=== PATIENT | female | born 1970 | race Caucasian/White ===

== ENCOUNTER 2016-09-26 14:54 | Inpatient (IN) | payer MEDICAID ==
[~2016-09-26] VITALS: Ht 172.7 cm; Wt 78.9 kg
[~2016-09-26 14:54] MED LIST: METF-303 PO
[2016-09-26 15:00] VITALS: BP_SYST 159
[2016-09-26] MEDS ORDERED: NACL 0.9% 1,000 ML IV SCH (15:18)
[2016-09-26 15:43] LABS: BILIRUBIN,URINE NEGATIVE (NEGATIVE); BLOOD, URINE 3+ (NEGATIVE); CLARITY/URINE HAZY (CLEAR); COLOR,URINE YELLOW (YELLOW); GLUCOSE,URINE 3+ (NEGATIVE); KETONES,URINE NEGATIVE (NEGATIVE); LEUKOCYTE ESTERASE ,URINE 2+ (NEGATIVE); NITRITE, URINE NEGATIVE (NEGATIVE); PROTEIN URINE 2+ (NEGATIVE); UROBILINOGEN,URINE 0.2 (0.2-1.0)
[2016-09-26 16:04] LABS: HEMATOCRIT 45.9 % (36-48); HEMOGLOBIN 15.3 g/dL (12.0-16.0); MEAN CORPUSCULAR HEMOGLOBIN 29 pg (27-31); MEAN CORPUSCULAR HGB CONC 34 % (32-36); MEAN CORPUSCULAR VOLUME 88 fL (79.0-98.0); PLATELET COUNT (AUTO) 185 K/uL (130-430); RED BLOOD CELL COUNT(AUTO) 5.21 MIL/uL (4.2-6.2); RED CELL DISTRIBUTION WIDTH 12.6 % (9.0-15.0); WHITE BLOOD COUNT (AUTO) 9.1 K/uL (4.8-10.8)
[2016-09-26 16:09] LABS: BACTERIA,URINE FEW /HPF (None Seen); MUCUS,URINE None Seen /LPF (None Seen); WBC,URINE 50-80 /HPF (0-3)
[2016-09-26 16:17] LABS: CALCIUM 8.5 mg/dL (8.4-11.0); CREATININE 1.01 mg/dL (0.55-1.30); POTASSIUM 3.8 mmol/L (3.5-5.1)
[2016-09-26 16:20] LABS: BAND % (MANUAL) 2 % (0-6); BASOPHILS % (MANUAL) 0 % (0-2); EOSINOPHILS % (MANUAL) 0 % (0-7); LYMPHOCYTES % (MANUAL) 5 % (20-46); MONOCYTES % (MANUAL) 1 % (0-11)
[2016-09-26 16:21] LABS: ALBUMIN 3.6 g/dL (3.4-4.8); TOTAL BILIRUBIN 1.6 mg/dL (0.0-1.0); TOTAL PROTEIN, SERUM 8.1 g/dL (6.4-8.3)
[2016-09-26] MEDS ORDERED: cefTRIAXone 1 GM IVPB PREMIX 50 ML IV ONE (16:45)
[2016-09-26] MEDS ORDERED: HUM10VIA3 SUBCUT (16:52)
[2016-09-26] MEDS ORDERED: LISI-209 PO (16:52)
[2016-09-26] MEDS ORDERED: KETOROLAC TROMETHAMINE 30 MG VIAL IVP ONE (17:00)
[2016-09-26] MEDS ORDERED: ACETAMINOPHEN 325 MG TABLET PO PRN (17:00)
[2016-09-26] MEDS ORDERED: NACL 0.9% 1,000 ML IV ONE (17:00)
[2016-09-26 17:35] VITALS: BP_SYST 128
[2016-09-26 18:04] VITALS: BP_SYST 128
[2016-09-26] MEDS: NACL 0.9% 1,000 ML IV SCH (18:43)
[2016-09-26] MEDS: INSULIN REGULAR, HUMAN 100 UNITS/ML, 10 ML VIAL (novoLIN R) SUBCUT PRN ×2 (18:45→22:46)
[2016-09-26 21:31] VITALS: BP_SYST 132
[2016-09-27 00:35] VITALS: BP_SYST 136
[2016-09-27] MEDS: MORPHINE 4 MG/ML INJ. SYRINGE IVP PRN ×4 (02:43→20:07)
[2016-09-27] MEDS: ACETAMINOPHEN 325 MG TABLET PO PRN ×2 (02:44→20:15)
[2016-09-27] MEDS ORDERED: MORPHINE 4 MG/ML INJ. SYRINGE ONE (02:50)
[2016-09-27] MEDS ORDERED: KETOROLAC TROMETHAMINE 15 MG VIAL IVP PRN (04:00)
[2016-09-27] MEDS ORDERED: KETOROLAC TROMETHAMINE 30 MG VIAL ONE (04:17)
[2016-09-27 04:21] VITALS: BP_SYST 137
[2016-09-27] MEDS: NACL 0.9% 1,000 ML IV SCH (06:18)
[2016-09-27] MEDS: INSULIN REGULAR, HUMAN 100 UNITS/ML, 10 ML VIAL (novoLIN R) SUBCUT PRN ×4 (06:23→20:24)
[2016-09-27 08:00] VITALS: BP_SYST 127
[2016-09-27] MEDS: LEVOFLOXACIN 500 MG/D5W 100 ML IV SCH (09:15)
[2016-09-27 13:12] VITALS: BP_SYST 138
[2016-09-27 13:59] LABS: CALCIUM 7.5 mg/dL (8.4-11.0); CREATININE 0.65 mg/dL (0.55-1.30); POTASSIUM 3.7 mmol/L (3.5-5.1)
[2016-09-27 14:00] LABS: BASOPHILS % (AUTO) 0.5 % (0.0-2.0); EOSINOPHILS % (AUTO) 0.4 % (0.0-4.0); HEMATOCRIT 40.7 % (36-48); HEMOGLOBIN 13.5 g/dL (12.0-16.0); LYMPHOCYTES # (AUTO) 0.6 K/uL (1.0-5.5); MEAN CORPUSCULAR HEMOGLOBIN 30 pg (27-31); MEAN CORPUSCULAR HGB CONC 33 % (32-36); MEAN CORPUSCULAR VOLUME 89 fL (79.0-98.0); MONOCYTES # (AUTO) 0.2 K/uL (0.0-1.0); MONOCYTES % (AUTO) 6.2 % (1.7-9.3); NEUTROPHILS # (AUTO) 3.2 K/uL (1.8-7.7); NEUTROPHILS % (AUTO) 78.9 % (40.0-70.0); PLATELET COUNT (AUTO) 143 K/uL (130-430); RED BLOOD CELL COUNT(AUTO) 4.57 MIL/uL (4.2-6.2); RED CELL DISTRIBUTION WIDTH 12.4 % (9.0-15.0)
[2016-09-27 16:50] VITALS: BP_SYST 133
[2016-09-27] MEDS: cefTRIAXone 1 GM in D5W 50 ML IV SCH (16:57)
[2016-09-27 19:45] VITALS: BP_SYST 166
[2016-09-27] MEDS ORDERED: cloNIDine HCL 0.2 MG TABLET PO PRN (21:30)
[2016-09-27] MEDS: HYDROcodone/ACETAMIN 5-325 MG TAB (NORCO/ VICODIN) PO PRN (22:00)
[2016-09-28 00:10] VITALS: BP_SYST 129
[2016-09-28] MEDS: NACL 0.9% 1,000 ML IV SCH ×2 (00:43→15:19)
[2016-09-28] MEDS: HYDROcodone/ACETAMIN 5-325 MG TAB (NORCO/ VICODIN) PO PRN (03:48)
[2016-09-28 04:28] VITALS: BP_SYST 138
[2016-09-28] MEDS: INSULIN REGULAR, HUMAN 100 UNITS/ML, 10 ML VIAL (novoLIN R) SUBCUT PRN ×4 (06:03→21:10)
[2016-09-28] MEDS: INSULIN NPH/REGULAR 70-30, 100 UNITS/ML, 10 ML VIAL SUBCUT SCH (06:04)
[2016-09-28 07:37] VITALS: BP_SYST 147
[2016-09-28] MEDS: HYDROcodone/ACETAMIN 10-325 MG TAB PO PRN ×4 (07:45→23:47)
[2016-09-28] MEDS: LISINOPRIL 5 MG TABLET PO SCH (09:15)
[2016-09-28] MEDS: LEVOFLOXACIN 500 MG/D5W 100 ML IV SCH (09:16)
[2016-09-28 12:37] VITALS: BP_SYST 133
[2016-09-28 16:28] VITALS: BP_SYST 142
[2016-09-28] MEDS: cefTRIAXone 1 GM in D5W 50 ML IV SCH (16:35)
[2016-09-28 16:48] LABS: BASOPHILS % (AUTO) 0.9 % (0.0-2.0); EOSINOPHILS % (AUTO) 0.8 % (0.0-4.0); HEMATOCRIT 41.4 % (36-48); HEMOGLOBIN 13.4 g/dL (12.0-16.0); LYMPHOCYTES # (AUTO) 0.6 K/uL (1.0-5.5); LYMPHOCYTES % (AUTO) 24.1 % (20.5-51.5); MEAN CORPUSCULAR HEMOGLOBIN 29 pg (27-31); MEAN CORPUSCULAR HGB CONC 33 % (32-36); MEAN CORPUSCULAR VOLUME 89 fL (79.0-98.0); MONOCYTES # (AUTO) 0.3 K/uL (0.0-1.0); MONOCYTES % (AUTO) 12.5 % (1.7-9.3); NEUTROPHILS # (AUTO) 1.6 K/uL (1.8-7.7); NEUTROPHILS % (AUTO) 61.7 % (40.0-70.0); PLATELET COUNT (AUTO) 135 K/uL (130-430); RED BLOOD CELL COUNT(AUTO) 4.64 MIL/uL (4.2-6.2); RED CELL DISTRIBUTION WIDTH 12.4 % (9.0-15.0); WHITE BLOOD COUNT (AUTO) 2.5 K/uL (4.8-10.8)
[2016-09-28 16:57] LABS: ALBUMIN 2.3 g/dL (3.4-4.8); CALCIUM 7.8 mg/dL (8.4-11.0); CREATININE 0.67 mg/dL (0.55-1.30); POTASSIUM 3.7 mmol/L (3.5-5.1); TOTAL BILIRUBIN 0.5 mg/dL (0.0-1.0); TOTAL PROTEIN, SERUM 6.3 g/dL (6.4-8.3)
[2016-09-28 20:30] VITALS: BP_SYST 142
[2016-09-29 01:19] VITALS: BP_SYST 144
[2016-09-29] MEDS: NACL 0.9% 1,000 ML IV SCH ×2 (02:12→06:39)
[2016-09-29 03:43] VITALS: BP_SYST 126
[2016-09-29] MEDS: HYDROcodone/ACETAMIN 10-325 MG TAB PO PRN ×3 (04:58→12:38)
[2016-09-29] MEDS: INSULIN NPH/REGULAR 70-30, 100 UNITS/ML, 10 ML VIAL SUBCUT SCH (06:35)
[2016-09-29] MEDS: INSULIN REGULAR, HUMAN 100 UNITS/ML, 10 ML VIAL (novoLIN R) SUBCUT PRN (06:36)
[2016-09-29] MEDS ORDERED: ONDANSETRON HCL 4 MG/2 ML VIAL IVP PRN (09:15)
[2016-09-29] MEDS: LISINOPRIL 5 MG TABLET PO SCH (10:07)
[2016-09-29] MEDS: LEVOFLOXACIN 500 MG/D5W 100 ML IV SCH (10:09)
[2016-09-29 10:18] LABS: HEMATOCRIT 43.5 % (36-48); HEMOGLOBIN 14.3 g/dL (12.0-16.0); MEAN CORPUSCULAR HEMOGLOBIN 29 pg (27-31); MEAN CORPUSCULAR HGB CONC 33 % (32-36); MEAN CORPUSCULAR VOLUME 89 fL (79.0-98.0); PLATELET COUNT (AUTO) 169 K/uL (130-430); RED CELL DISTRIBUTION WIDTH 12.5 % (9.0-15.0)
[2016-09-29 10:20] LABS: WHITE BLOOD COUNT (AUTO) 3.2 K/uL (4.8-10.8)
[2016-09-29 10:25] LABS: ALBUMIN 2.6 g/dL (3.4-4.8); CALCIUM 8.1 mg/dL (8.4-11.0); CREATININE 0.64 mg/dL (0.55-1.30); POTASSIUM 3.6 mmol/L (3.5-5.1); TOTAL BILIRUBIN 0.4 mg/dL (0.0-1.0); TOTAL PROTEIN, SERUM 6.8 g/dL (6.4-8.3)
[2016-09-29 10:46] LABS: ATYPICAL LYMPHOCYTES % 3 % (0-0); BAND % (MANUAL) 3 % (0-6); BASOPHILS % (MANUAL) 0 % (0-2); EOSINOPHILS % (MANUAL) 0 % (0-7); LYMPHOCYTES % (MANUAL) 23 % (20-46); MONOCYTES % (MANUAL) 13 % (0-11)
[2016-09-29] MEDS ORDERED: GENTAMICIN 120 MG/ ISO-OSM 100 ML PREMIX IV SCH (11:00)
[2016-09-29] MEDS ORDERED: METOCLOPRAMIDE HCL 10 MG/2 ML VIAL IVP SCH (12:00)
[2016-09-29] MEDS ORDERED: METOCLOPRAMIDE HCL 10 MG/2 ML VIAL IVP PRN (12:00)
[2016-09-29 12:25] VITALS: BP_SYST 138
[2016-09-29] MEDS ORDERED: NITR-85 PO (16:21)
[2016-09-29 16:39] VITALS: BP_SYST 134
[2016-09-29 16:44] VITALS: BP_SYST 142
[2016-09-30 08:17] LABS: WEST NILE VIRUS, IgG, SERUM Negative (Negative)
[2016-09-30 12:25] LABS: HEPATITIS A AB, IgM Negative (Negative); HEPATITIS B CORE AB, IgM Negative (Negative); HEPATITIS B SURFACE AG Negative (Negative)
== END 2016-09-29 17:15 | disposition home or self-care (01) | DRG 720 ==
LOC: SED 14:54 → SMU 16:52
PROVIDERS: ADMIT Internal Medicine; ATTEND Internal Medicine
DX: A41.9 Sepsis, unspecified organism (principal); E11.65 Type 2 diabetes mellitus with hyperglycemia; N10 Acute pyelonephritis; I10 Essential (primary) hypertension; B34.9 Viral infection, unspecified; E78.00 Pure hypercholesterolemia, unspecified; D72.819 Decreased white blood cell count, unspecified; F17.200 Nicotine dependence, unspecified, uncomplicated; H53.149 Visual discomfort, unspecified; Z88.8 Allergy status to other drugs, medicaments and biological substances; Z79.4 Long term (current) use of insulin; Z79.899 Other long term (current) drug therapy
CPT/HCPCS: 36415; 70450-TC; 71010; 76770; 80048; 80053; 80074; 81000-TC; 81025; 82962; 83036; 83605; 85007; 85025; 85027; 86710; 86788; 86789; 87040-TC; 87086; 93005; 96361; 96365; 96375; 99291; J0696; J1580; J1815; J1885; J1956; J2270; J2405; J7030; J7060

== ENCOUNTER 2021-08-17 04:29 | Emergency (ER) | payer MEDICAID ==
[~2021-08-17] VITALS: Ht 172.7 cm; Wt 68.0 kg
[~2021-08-17 04:29] MED LIST changes: +HUM10VIA3 SUBCUT; +LISI-209 PO; -METF-303 PO; +NITR-85 PO
[2021-08-17 05:32] VITALS: BP_SYST 165
--- NOTE | 2021-08-17 05:32 | NUR ---
Patient ambulatory to bed [facility] for evaluation and treatment
--- NOTE | 2021-08-17 05:35 | NUR ---
Pt came from home with c/o ear pain that started yesterday, rated 10/10. Pt reports the pain has spread throughout the left side of the face. PT reports taking aleeve at around noon. Pt reports swimming for the last 2 days. A&O x 4, ambulatory, and follows simple commands. Safety precautions in place.
--- NOTE | 2021-08-17 05:39 | NUR ---
Dr. Vargas at bedside with patient for evaluation.
--- NOTE | 2021-08-17 05:41 | NUR ---
Mike soares in [facility] - 08/17/21 at 0542 by [email or web address] Patient ambulatory to bed hallway for evaluation and treatment
[2021-08-17] MEDS ORDERED: FLOEARD LEFT EAR (06:05)
--- NOTE | 2021-08-17 06:08 | NUR ---
BG 419. Dr. Vargas made aware.
[2021-08-17 06:09] VITALS: BP_SYST 165
--- NOTE | 2021-08-17 06:09 | NUR ---
Patient given written and verbal discharge instructions and verbalizes understanding. ER Dr. Vargas discussed with patient the results and treatment provided. Patient in stable condition. ID arm band removed. Rx of ofloxacin given. Patient educated on pain management and to follow up with PMD. Pain Scale 3. Opportunity for questions provided and answered. Medication side effect fact sheet provided.
== END 2021-08-17 06:09 | disposition home or self-care (01) ==
LOC: SED 04:29
DX: H66.92 Otitis media, unspecified, left ear (principal); E11.9 Type 2 diabetes mellitus without complications; I10 Essential (primary) hypertension; Z88.6 Allergy status to analgesic agent
CPT/HCPCS: 99283

== ENCOUNTER 2021-08-31 12:08 | Emergency (ER) | payer OTHER, MEDICAID ==
[~2021-08-31] VITALS: Ht 170.2 cm; Wt 68.0 kg
[~2021-08-31 12:08] MED LIST changes: +FLOEARD LEFT EAR
[2021-08-31 13:20] VITALS: BP_SYST 123
== END 2021-08-31 18:51 | disposition left against medical advice (07) ==
LOC: SED 12:08
DX: R07.89 Other chest pain (principal); E11.9 Type 2 diabetes mellitus without complications; I10 Essential (primary) hypertension; Z88.6 Allergy status to analgesic agent; Z53.21 Procedure and treatment not carried out due to patient leaving prior to being seen by health care provider

== ENCOUNTER 2022-04-13 23:38 | Emergency (ER) | payer MEDICAID, OTHER ==
[~2022-04-13] VITALS: Ht 170.2 cm; Wt 70.3 kg
[2022-04-13 23:51] VITALS: BP_SYST 114
[2022-04-14] MEDS ORDERED: HYDROcodone/ACETAMIN 5-325 MG TAB (NORCO/ VICODIN) PO ONE (01:15)
[2022-04-14 01:19] LABS: CALCIUM 8.6 mg/dL (8.4-11.0); CREATININE 0.4 mg/dL (0.55-1.30)
[2022-04-14 01:20] LABS: ALBUMIN 3.1 g/dL (3.4-4.8); TOTAL BILIRUBIN 0.5 mg/dL (0.0-1.0)
[2022-04-14 01:24] LABS: BILIRUBIN,URINE NEGATIVE (NEGATIVE); BLOOD, URINE NEGATIVE (NEGATIVE); CLARITY/URINE CLEAR (CLEAR); COLOR,URINE YELLOW (YELLOW); GLUCOSE,URINE NEGATIVE (NEGATIVE); KETONES,URINE NEGATIVE (NEGATIVE); LEUKOCYTE ESTERASE ,URINE NEGATIVE (NEGATIVE); NITRITE, URINE NEGATIVE (NEGATIVE); PH,URINE 7.5 (5.0-8.0); PROTEIN URINE NEGATIVE (NEGATIVE)
[2022-04-14] MEDS ORDERED: ACETAMINOPHEN 325 MG TABLET PO ONE (01:30)
[2022-04-14] MEDS ORDERED: MORPHINE 4 MG INJ. 4 MG/ML VIAL IVP ONE (01:30)
[2022-04-14] MEDS ORDERED: ONDANSETRON HCL 4 MG/2 ML VIAL IVP ONE (01:30)
[2022-04-14 01:52] LABS: BACTERIA,URINE None Seen /HPF (None Seen); RBC,URINE 0-3 /HPF (0-3); WBC,URINE 0-3 /HPF (0-3)
[2022-04-14 02:08] LABS: BASOPHILS % (AUTO) 0.5 % (0.0-2.0); EOSINOPHILS # (AUTO) 0.2 K/uL (0.0-0.4); EOSINOPHILS % (AUTO) 3.4 % (0.0-4.0); HEMATOCRIT 28.5 % (36-48); HEMOGLOBIN 9.6 g/dL (12.0-16.0); LYMPHOCYTES # (AUTO) 1.1 K/uL (1.0-5.5); LYMPHOCYTES % (AUTO) 18.3 % (20.5-51.5); MEAN CORPUSCULAR HEMOGLOBIN 31 pg (27-31); MEAN CORPUSCULAR HGB CONC 34 % (32-36); MEAN CORPUSCULAR VOLUME 91 fL (79.0-98.0); MONOCYTES # (AUTO) 0.5 K/uL (0.0-1.0); MONOCYTES % (AUTO) 8.6 % (1.7-9.3); NEUTROPHILS % (AUTO) 69.2 % (40.0-70.0); PLATELET COUNT (AUTO) 356 K/uL (130-430); RED BLOOD CELL COUNT(AUTO) 3.14 MIL/uL (4.2-6.2); RED CELL DISTRIBUTION WIDTH 13.7 % (9.0-15.0); WHITE BLOOD COUNT (AUTO) 5.8 K/uL (4.8-10.8)
[2022-04-14] MEDS ORDERED: POLY238P14 PO (02:16)
[2022-04-14] MEDS ORDERED: POLY17PO4 PO (02:16)
[2022-04-14] MEDS ORDERED: DOXY100C5 PO (02:16)
[2022-04-14] MEDS ORDERED: GOLYTELY / COLYTE SOLUTION 4 LITERS ONE (02:45)
[2022-04-14] MEDS ORDERED: DICYCLOMINE HCL 10 MG CAPSULE PO ONE (02:45)
[2022-04-14] MEDS ORDERED: POLYETHYLENE GLYCOL 3350, 17 GM/ POWD.PACK PO ONE (02:45)
[2022-04-14] MEDS ORDERED: DICYCLOMINE HCL 10 MG/5 ML SOLUTION ONE (02:51)
[2022-04-14] MEDS ORDERED: POLYETHYLENE GLYCOL 3350, 17 GM/ POWD.PACK ONE (02:57)
[2022-04-14] MEDS ORDERED: DICYCLOMINE HCL 10 MG/5 ML SOLUTION PO ONE (03:00)
[2022-04-14 03:30] VITALS: BP_SYST 114
== END 2022-04-14 02:40 | disposition home or self-care (01) ==
LOC: SED 23:38
DX: J18.9 Pneumonia, unspecified organism (principal); R10.9 Unspecified abdominal pain; F41.9 Anxiety disorder, unspecified; E11.9 Type 2 diabetes mellitus without complications; I10 Essential (primary) hypertension; J90 Pleural effusion, not elsewhere classified; Z95.1 Presence of aortocoronary bypass graft; Z79.899 Other long term (current) drug therapy
CPT/HCPCS: 36415; 71045; 76376; 80053; 81000; 81025; 83690; 85025; 99285

== ENCOUNTER 2022-06-10 07:03 | Inpatient (IN) | payer MEDICAID ==
[~2022-06-10] VITALS: Ht 170.2 cm; Wt 74.8 kg
[~2022-06-10 07:03] MED LIST changes: +DOXY100C5 PO; +POLY238P14 PO
[2022-06-10 07:37] VITALS: BP_SYST 138
[2022-06-10] MEDS ORDERED: KETOROLAC TROMETHAMINE 30 MG VIAL IVP ONE (08:00)
[2022-06-10 08:21] LABS: BASOPHILS % (AUTO) 0.8 % (0.0-2.0); EOSINOPHILS # (AUTO) 0.3 K/uL (0.0-0.4); EOSINOPHILS % (AUTO) 5.7 % (0.0-4.0); HEMATOCRIT 42.3 % (36-48); HEMOGLOBIN 13.8 g/dL (12.0-16.0); LYMPHOCYTES # (AUTO) 0.8 K/uL (1.0-5.5); LYMPHOCYTES % (AUTO) 13.3 % (20.5-51.5); MEAN CORPUSCULAR HEMOGLOBIN 27 pg (27-31); MEAN CORPUSCULAR HGB CONC 33 % (32-36); MEAN CORPUSCULAR VOLUME 84 fL (79.0-98.0); MONOCYTES # (AUTO) 0.5 K/uL (0.0-1.0); MONOCYTES % (AUTO) 8.2 % (1.7-9.3); NEUTROPHILS # (AUTO) 4.1 K/uL (1.8-7.7); PLATELET COUNT (AUTO) 256 K/uL (130-430); RED BLOOD CELL COUNT(AUTO) 5.03 MIL/uL (4.2-6.2); RED CELL DISTRIBUTION WIDTH 14.3 % (9.0-15.0); WHITE BLOOD COUNT (AUTO) 5.7 K/uL (4.8-10.8)
[2022-06-10 08:37] LABS: ANION GAP 7 (5-15); CALCIUM 8.8 mg/dL (8.4-11.0); CHLORIDE 99 mmol/L (98-107); CREATININE 0.66 mg/dL (0.55-1.30); GFR AFRICAN AMERICAN 121 mL/min (>90); GLUCOSE 379 mg/dL (70-99); UREA NITROGEN, BLOOD 13 mg/dL (8-21)
[2022-06-10 08:44] LABS: ALANINE AMINOTRANSFERASE 25 U/L (12-78); ALBUMIN 3.4 g/dL (3.4-4.8); ASPARTATE AMINOTRANSFERASE 14 U/L (10-37); TOTAL BILIRUBIN 0.9 mg/dL (0.0-1.0)
[2022-06-10] MEDS ORDERED: CLOP75TA32 PO (09:44)
[2022-06-10] MEDS ORDERED: FURO20TA4 PO (09:44)
[2022-06-10] MEDS ORDERED: INSNLG7030 SUBCUT (09:44)
[2022-06-10] MEDS ORDERED: IBUP-1969 PO (09:44)
[2022-06-10] MEDS ORDERED: ATOR40TA68 PO (09:44)
[2022-06-10] MEDS ORDERED: METO50TA16 PO (10:00)
[2022-06-10 11:20] VITALS: BP_SYST 125
[2022-06-10] MEDS ORDERED: HYDROcodone/ACETAMIN 10-325 MG TAB PO PRN (11:30)
[2022-06-10] MEDS ORDERED: METOPROLOL TARTRATE 50 MG TABLET PO ONE (11:30)
[2022-06-10] MEDS ORDERED: HYDROcodone/ACETAMIN 5-325 MG TAB (NORCO/ VICODIN) PO PRN (11:30)
[2022-06-10] MEDS ORDERED: LORazepam 2 MG/ML VIAL IVP PRN (11:30)
[2022-06-10] MEDS ORDERED: ONDANSETRON HCL 4 MG/2 ML VIAL IVP PRN (11:30)
[2022-06-10] MEDS ORDERED: NALOXONE HCL 0.4 MG/ML AMP (NARCAN) IVP PRN ×2 (11:30)
[2022-06-10] MEDS ORDERED: FUROSEMIDE 20 MG TABLET PO ONE (11:30)
[2022-06-10] MEDS ORDERED: ACETAMINOPHEN 325 MG TABLET PO PRN ×2 (11:30)
[2022-06-10] MEDS ORDERED: INSULIN REGULAR, HUMAN 100 UNITS/ML, 3 ML VIAL (humuLIN R) SUBCUT PRN (11:30)
[2022-06-10] MEDS ORDERED: CLOPIDOGREL BISULFATE 75 MG TABLET PO ONE (11:30)
[2022-06-10 11:31] VITALS: BP_SYST 138
[2022-06-10] MEDS ORDERED: FUROSEMIDE 20 MG/2 ML VIAL IVP ONE (13:15)
[2022-06-10] MEDS ORDERED: ATORVASTATIN 20 MG TABLET PO ONE (13:30)
[2022-06-10] MEDS ORDERED: CARVEDILOL 6.25 MG TABLET (COREG) PO ONE (13:30)
[2022-06-10] MEDS ORDERED: ISOSORBIDE MONONITRATE 30 MG TAB.ER.24H PO ONE (13:30)
[2022-06-10] MEDS ORDERED: NORMAL SALINE 5 ML DISP.SYRIN IVF SCH ×2 (14:00)
[2022-06-10] MEDS ORDERED: LISINOPRIL 10 MG TABLET (PRINIVIL) PO SCH (21:00)
[2022-06-10] MEDS ORDERED: CARVEDILOL 6.25 MG TABLET (COREG) PO SCH (21:00)
[2022-06-10] MEDS ORDERED: ATORVASTATIN 20 MG TABLET PO SCH (21:00)
[2022-06-11] MEDS ORDERED: METOPROLOL TARTRATE 50 MG TABLET PO SCH (09:00)
[2022-06-11] MEDS ORDERED: ISOSORBIDE MONONITRATE 30 MG TAB.ER.24H PO SCH (09:00)
[2022-06-11] MEDS ORDERED: LOSARTAN POTASSIUM 25 MG TABLET PO SCH (09:00)
[2022-06-11] MEDS ORDERED: CLOPIDOGREL BISULFATE 75 MG TABLET PO SCH (09:00)
[2022-06-11] MEDS ORDERED: FUROSEMIDE 20 MG TABLET PO SCH (09:00)
[2022-06-11] MEDS ORDERED: ATORVASTATIN 20 MG TABLET PO SCH (21:00)
== END 2022-06-10 13:55 | disposition left against medical advice (07) | DRG 144 ==
LOC: SED 07:03 → STU 09:29
PROVIDERS: ADMIT Preventive Medicine Preventive Medicine/Occupational Environmental Medicine; ATTEND Preventive Medicine Preventive Medicine/Occupational Environmental Medicine
DX: R09.02 Hypoxemia (principal); E87.1 Hypo-osmolality and hyponatremia; E11.65 Type 2 diabetes mellitus with hyperglycemia; J90 Pleural effusion, not elsewhere classified; J40 Bronchitis, not specified as acute or chronic; Z95.1 Presence of aortocoronary bypass graft; E78.00 Pure hypercholesterolemia, unspecified; I25.10 Atherosclerotic heart disease of native coronary artery without angina pectoris; Z20.822 Contact with and (suspected) exposure to COVID-19; Z88.8 Allergy status to other drugs, medicaments and biological substances; Z79.1 Long term (current) use of non-steroidal anti-inflammatories (NSAID); Z79.899 Other long term (current) drug therapy; I10 Essential (primary) hypertension
CPT/HCPCS: 36415; 71045; 76604; 80053; 83605; 83880; 84484; 85025; 87040; 93005; 93306; 96374; 99285; G0378; J1885

== ENCOUNTER 2023-05-01 18:25 | Emergency (ER) | payer MEDICAID ==
[~2023-05-01] VITALS: Ht 170.2 cm; Wt 71.7 kg
[~2023-05-01 18:25] MED LIST changes: +ATOR40TA68 PO; +CLOP75TA32 PO; -DOXY100C5 PO; -FLOEARD LEFT EAR; +FURO20TA4 PO; -HUM10VIA3 SUBCUT; +INSNLG7030 SUBCUT; +METO50TA16 PO; -NITR-85 PO; -POLY238P14 PO
[2023-05-01 18:52] VITALS: BP_SYST 105; PULSE 98; RESP 16; TEMP 97.3; O2SAT 97
[2023-05-01 19:20] LABS: BASOPHILS % (AUTO) 0.6 % (0.0-2.0); EOSINOPHILS # (AUTO) 0.1 K/uL (0.0-0.4); EOSINOPHILS % (AUTO) 1.7 % (0.0-4.0); HEMATOCRIT 43.8 % (36-48); HEMOGLOBIN 14.7 g/dL (12.0-16.0); LYMPHOCYTES % (AUTO) 21.2 % (20.5-51.5); MEAN CORPUSCULAR HEMOGLOBIN 31 pg (27-31); MEAN CORPUSCULAR HGB CONC 34 % (32-36); MEAN CORPUSCULAR VOLUME 92 fL (79.0-98.0); MONOCYTES # (AUTO) 0.3 K/uL (0.0-1.0); MONOCYTES % (AUTO) 7.1 % (1.7-9.3); NEUTROPHILS # (AUTO) 3.1 K/uL (1.8-7.7); NEUTROPHILS % (AUTO) 69.4 % (40.0-70.0); PLATELET COUNT (AUTO) 205 K/uL (130-430); RED BLOOD CELL COUNT(AUTO) 4.78 MIL/uL (4.2-6.2); RED CELL DISTRIBUTION WIDTH 13.5 % (9.0-15.0); WHITE BLOOD COUNT (AUTO) 4.5 K/uL (4.8-10.8)
[2023-05-01 19:29] LABS: SERUM HCG (QUALITATIVE) NEGATIVE (NEGATIVE)
[2023-05-01 19:32] LABS: INR 0.9 (0.8-1.2); PROTHROMBIN TIME 9.3 SECS (9.5-12.5)
[2023-05-01 19:43] LABS: ALBUMIN 3.6 g/dL (3.4-4.8); BILIRUBIN,DIRECT 0.1 mg/dL (0.0-0.3); CALCIUM 8.4 mg/dL (8.4-11.0); CREATININE 1.25 mg/dL (0.55-1.30); POTASSIUM 4.9 mmol/L (3.5-5.1); TOTAL BILIRUBIN 0.6 mg/dL (0.0-1.0); TOTAL PROTEIN, SERUM 7.1 g/dL (6.4-8.3)
[2023-05-01] MEDS ORDERED: HYDROcodone/ACETAMIN 10-325 MG TAB PO ONE (20:00)
[2023-05-01] MEDS ORDERED: IBUPROFEN 600 MG TABLET PO ONE (20:00)
[2023-05-01] MEDS ORDERED: INSULIN REGULAR, HUMAN 10 UNITS/0.1 ML, 3 ML VIAL IVP ONE (20:00)
[2023-05-01] MEDS: NACL 0.9% 1,000 ML IV ONE (20:00)
[2023-05-02 02:06] VITALS: BP_SYST 125
[2023-05-04] MEDS ORDERED: POLY119P2 PO (00:12)
[2023-05-04] MEDS ORDERED: NAPR-690 PO (00:12)
== END 2023-05-01 20:01 | disposition left against medical advice (07) ==
LOC: SED 18:25
DX: R10.9 Unspecified abdominal pain (principal); E11.65 Type 2 diabetes mellitus with hyperglycemia; R73.9 Hyperglycemia, unspecified; I10 Essential (primary) hypertension; Z88.5 Allergy status to narcotic agent; Z79.899 Other long term (current) drug therapy
CPT/HCPCS: 36415; 80048; 80076; 82150; 83605; 83690; 84703; 85025; 85610; 85730; 99284

== ENCOUNTER 2023-05-17 00:43 | Emergency (ER) | payer MEDICAID ==
[~2023-05-17] VITALS: Ht 170.2 cm; Wt 72.6 kg
[~2023-05-17 00:43] MED LIST changes: +NAPR-690 PO; +POLY119P2 PO
[2023-05-17 00:57] VITALS: BP_SYST 125; PULSE 109; RESP 16; TEMP 97.6; O2SAT 98
[2023-05-17] MEDS: KETOROLAC TROMETHAMINE 15 MG VIAL IVP ONE (02:06)
[2023-05-17 02:28] LABS: ALANINE AMINOTRANSFERASE 25 U/L (12-78); ALBUMIN 3.3 g/dL (3.4-4.8); ANION GAP 4 (5-15); ASPARTATE AMINOTRANSFERASE 11 U/L (10-37); BILIRUBIN,DIRECT < 0.1 mg/dL (0.0-0.3); CALCIUM 8.4 mg/dL (8.4-11.0); CARBON DIOXIDE 31 mmol/L (23-29); CHLORIDE 101 mmol/L (98-107); CREATININE 0.71 mg/dL (0.55-1.30); GFR AFRICAN AMERICAN 111 mL/min (>90); LIPASE 48 U/L (16-77); POTASSIUM 4.3 mmol/L (3.5-5.1); SODIUM SERUM 136 mmol/L (136-145); TOTAL BILIRUBIN 0.3 mg/dL (0.0-1.0); TOTAL PROTEIN, SERUM 6.6 g/dL (6.4-8.3); UREA NITROGEN, BLOOD 10 mg/dL (8-21)
[2023-05-17 02:30] LABS: GFR NON AFRICAN-AMERICAN 92 mL/min (>90)
[2023-05-17 02:32] LABS: GLUCOSE 481 mg/dL (74-106)
[2023-05-17] MEDS: INSULIN REGULAR, HUMAN 10 UNITS/0.1 ML, 3 ML VIAL IVP ONE (03:04)
[2023-05-17] MEDS ORDERED: LACT10SO6 PO (04:10)
[2023-05-17 04:15] VITALS: BP_SYST 140; PULSE 107; RESP 18; TEMP 97.5; O2SAT 99
== END 2023-05-17 04:04 | disposition left against medical advice (07) ==
LOC: SED 00:43
DX: K59.00 Constipation, unspecified (principal); R10.31 Right lower quadrant pain; E11.65 Type 2 diabetes mellitus with hyperglycemia; R73.9 Hyperglycemia, unspecified; I10 Essential (primary) hypertension; F17.200 Nicotine dependence, unspecified, uncomplicated; Z88.5 Allergy status to narcotic agent; Z79.4 Long term (current) use of insulin; Z79.899 Other long term (current) drug therapy
CPT/HCPCS: 99285; 74176; 96374; 80076; 80048; 83690; 36415; J1815; J1885

== ENCOUNTER 2023-10-28 09:59 | Emergency (ER) | payer MEDICAID ==
[~2023-10-28] VITALS: Ht 167.6 cm; Wt 72.6 kg
[~2023-10-28 09:59] MED LIST changes: +LACT10SO6 PO
[2023-10-28 10:08] VITALS: BP_SYST 136; PULSE 111; RESP 18; TEMP 98.3; O2SAT 100
[2023-10-28 10:40] LABS: BASOPHILS % (AUTO) 0.3 % (0.0-2.0); EOSINOPHILS % (AUTO) 0.5 % (0.0-4.0); HEMATOCRIT 47.6 % (36-48); HEMOGLOBIN 16.1 g/dL (12.0-16.0); LYMPHOCYTES # (AUTO) 0.2 K/uL (1.0-5.5); LYMPHOCYTES % (AUTO) 1.6 % (20.5-51.5); MEAN CORPUSCULAR HEMOGLOBIN 30 pg (27-31); MEAN CORPUSCULAR HGB CONC 34 % (32-36); MEAN CORPUSCULAR VOLUME 89 fL (79.0-98.0); MONOCYTES # (AUTO) 0.2 K/uL (0.0-1.0); NEUTROPHILS # (AUTO) 9.3 K/uL (1.8-7.7); NEUTROPHILS % (AUTO) 95.6 % (40.0-70.0); PLATELET COUNT (AUTO) 178 K/uL (130-430); RED BLOOD CELL COUNT(AUTO) 5.33 MIL/uL (4.2-6.2); WHITE BLOOD COUNT (AUTO) 9.7 K/uL (4.8-10.8)
[2023-10-28 10:43] LABS: VENOUS BASE EXCESS 1.4 mmol/l (-2.0-3.0); VENOUS PCO2 33.2 mmHg (38.0-54.0); VENOUS PO2 38.9 mmHg (23.0-48.0)
[2023-10-28] MEDS: NS 1000 ML IV.SOLN IV ONE (10:45)
[2023-10-28 10:55] LABS: INR 0.9 (0.8-1.2); PROTHROMBIN TIME 9.6 SECS (9.5-12.5)
[2023-10-28 11:09] LABS: ALANINE AMINOTRANSFERASE 39 U/L (12-78); ALBUMIN 3.6 g/dL (3.4-4.8); ANION GAP 11 (5-15); ASPARTATE AMINOTRANSFERASE 28 U/L (10-37); BILIRUBIN,DIRECT 0.3 mg/dL (0.0-0.3); CALCIUM 8.6 mg/dL (8.4-11.0); CARBON DIOXIDE 28 mmol/L (23-29); CHLORIDE 99 mmol/L (98-107); CREATININE 0.72 mg/dL (0.55-1.30); GFR AFRICAN AMERICAN 109 mL/min (>90); GLUCOSE 351 mg/dL (74-106); LIPASE 17 U/L (16-77); POTASSIUM 3.9 mmol/L (3.5-5.1); SODIUM SERUM 138 mmol/L (136-145); TOTAL BILIRUBIN 1.9 mg/dL (0.0-1.0); TOTAL PROTEIN, SERUM 7.3 g/dL (6.4-8.3); UREA NITROGEN, BLOOD 12 mg/dL (8-21)
[2023-10-28 11:10] LABS: GFR NON AFRICAN-AMERICAN 90 mL/min (>90)
[2023-10-28 11:42] LABS: BILIRUBIN,URINE NEGATIVE (NEGATIVE); BLOOD, URINE NEGATIVE (NEGATIVE); CLARITY/URINE CLEAR (CLEAR); COLOR,URINE YELLOW (YELLOW); GLUCOSE,URINE 3+ (NEGATIVE); KETONES,URINE 1+ (NEGATIVE); LEUKOCYTE ESTERASE ,URINE NEGATIVE (NEGATIVE); NITRITE, URINE NEGATIVE (NEGATIVE); PROTEIN URINE NEGATIVE (NEGATIVE); UROBILINOGEN,URINE 0.2 (0.2-1.0)
[2023-10-28 12:04] LABS: BACTERIA,URINE FEW /HPF (None Seen); RBC,URINE NONE SEEN /HPF (0-3); WBC,URINE 0-3 /HPF (0-3)
[2023-10-28 13:34] VITALS: BP_SYST 133; PULSE 105; RESP 18; TEMP 98.2; O2SAT 100
== END 2023-10-28 13:00 | disposition home or self-care (01) ==
LOC: SED 09:59
DX: K52.89 Other specified noninfective gastroenteritis and colitis (principal); E86.0 Dehydration; E11.65 Type 2 diabetes mellitus with hyperglycemia; I10 Essential (primary) hypertension; F17.200 Nicotine dependence, unspecified, uncomplicated; Z88.8 Allergy status to other drugs, medicaments and biological substances; Z79.899 Other long term (current) drug therapy; Z79.2 Long term (current) use of antibiotics
CPT/HCPCS: 99284; 96360; 96361; 80076; 80048; 81001; 83690; 85025; 85610; 85730; 87040; 87086; 84484; 36415; 93005; 82803; 82948; 83605; J7030; 81000; 81015

== ENCOUNTER 2023-10-30 06:23 | Emergency (ER) | payer MEDICAID ==
[~2023-10-30] VITALS: Ht 170.2 cm; Wt 69.4 kg
[2023-10-30 06:39] VITALS: BP_SYST 118; PULSE 103; RESP 16; TEMP 97.1; O2SAT 100
[2023-10-30] MEDS: NACL 0.9% 1,000 ML IV ONE ×2 (07:29→09:15)
[2023-10-30] MEDS: ONDANSETRON HCL 4 MG/2 ML VIAL IVP ONE (07:31)
[2023-10-30 08:13] LABS: BASOPHILS % (AUTO) 0.2 % (0.0-2.0); EOSINOPHILS # (AUTO) 0.1 K/uL (0.0-0.4); EOSINOPHILS % (AUTO) 2.1 % (0.0-4.0); HEMATOCRIT 42.9 % (36-48); HEMOGLOBIN 14.2 g/dL (12.0-16.0); LYMPHOCYTES # (AUTO) 0.8 K/uL (1.0-5.5); MEAN CORPUSCULAR HEMOGLOBIN 30 pg (27-31); MEAN CORPUSCULAR HGB CONC 33 % (32-36); MEAN CORPUSCULAR VOLUME 90 fL (79.0-98.0); MONOCYTES # (AUTO) 0.5 K/uL (0.0-1.0); MONOCYTES % (AUTO) 12.6 % (1.7-9.3); NEUTROPHILS # (AUTO) 2.4 K/uL (1.8-7.7); NEUTROPHILS % (AUTO) 63.1 % (40.0-70.0); PLATELET COUNT (AUTO) 150 K/uL (130-430); RED BLOOD CELL COUNT(AUTO) 4.75 MIL/uL (4.2-6.2); RED CELL DISTRIBUTION WIDTH 12.9 % (9.0-15.0); WHITE BLOOD COUNT (AUTO) 3.9 K/uL (4.8-10.8)
[2023-10-30 08:31] LABS: ALBUMIN 2.9 g/dL (3.4-4.8); BILIRUBIN,DIRECT 0.2 mg/dL (0.0-0.3); CALCIUM 8.2 mg/dL (8.4-11.0); CREATININE 0.68 mg/dL (0.55-1.30); POTASSIUM 3.6 mmol/L (3.5-5.1); TOTAL BILIRUBIN 0.6 mg/dL (0.0-1.0); TOTAL PROTEIN, SERUM 6.2 g/dL (6.4-8.3)
[2023-10-30 10:11] VITALS: BP_SYST 132; PULSE 94; RESP 15; TEMP 97.5; O2SAT 100
== END 2023-10-30 10:05 | disposition left against medical advice (07) ==
LOC: SED 06:23
DX: K52.9 Noninfective gastroenteritis and colitis, unspecified (principal); K56.7 Ileus, unspecified; R11.2 Nausea with vomiting, unspecified; E11.9 Type 2 diabetes mellitus without complications; I10 Essential (primary) hypertension; Z88.8 Allergy status to other drugs, medicaments and biological substances; Z20.822 Contact with and (suspected) exposure to COVID-19
CPT/HCPCS: 99285; 74176; 96374; 96361; 87426; 80076; 80048; 83690; 85025; 36415; 93005; J2405; J7030

== ENCOUNTER 2023-12-28 01:39 | Emergency (ER) | payer MEDICAID ==
[~2023-12-28] VITALS: Ht 170.2 cm; Wt 70.3 kg
[2023-12-28 01:46] VITALS: BP_SYST 141; PULSE 102; RESP 19; TEMP 98; O2SAT 98
[2023-12-28] MEDS: KETOROLAC TROMETHAMINE 60 MG/2 ML VIAL IM ONE (02:23)
[2023-12-28] MEDS ORDERED: METH-800 PO (03:02)
[2023-12-28 03:36] VITALS: BP_SYST 110; PULSE 98; RESP 20; TEMP 97.1; O2SAT 98
== END 2023-12-28 03:36 | disposition home or self-care (01) ==
LOC: SED 01:39
DX: S29.012A Strain of muscle and tendon of back wall of thorax, initial encounter (principal); I10 Essential (primary) hypertension; E11.9 Type 2 diabetes mellitus without complications; E78.00 Pure hypercholesterolemia, unspecified; Z79.02 Long term (current) use of antithrombotics/antiplatelets; Z79.4 Long term (current) use of insulin; Z79.899 Other long term (current) drug therapy; X50.9XXA Other and unspecified overexertion or strenuous movements or postures, initial encounter; Y93.89 Activity, other specified; Y92.89 Other specified places as the place of occurrence of the external cause; Y99.8 Other external cause status
CPT/HCPCS: 99283; 71046; 96372; J1885